=== PATIENT | male | born 1965 ===

== ENCOUNTER 2018-07-07 08:22 | Outpatient (CLI) | payer OTHER | END 2018-07-07 08:23 | disposition home or self-care (01) | LOC: C.PAT 08:22 | DX: K42.9 Umbilical hernia without obstruction or gangrene (principal) ==

== ENCOUNTER 2018-07-10 06:03 | Day surgery (SDC) | payer OTHER | END 2018-07-10 13:30 | disposition home or self-care (01) | LOC: C.SDS 06:03 | CPT/HCPCS: 22999; 49652; 64488; 88302; C1781; J0690; J1170; J2001; J2250; J2405; J2704; J2710; J3010; S2900 ==